=== PATIENT | female | born 1965 | race Caucasian/White ===

== ENCOUNTER → 2017-02-19 | Outpatient (CLI) | payer BC ==
[~2017-02-19] MED LIST: 00186-0370-20 IH; ALEVE 220MG220 MG PO; FLEXERIL 1010 MG/TAB PO; LORATADINE10 MG PO; NORCO 325 MG-51 TAB PO; NORCO 325 MG-7.1 TAB PO; PROAIR HFA0.09 MG/AC IH; SINGULAIR 110 MG/TAB PO; SUDAFED30 MG
== END ==
LOC: MC.RAD 08:19
DX: Z12.31 Encounter for screening mammogram for malignant neoplasm of breast (principal)

== ENCOUNTER → 2018-05-11 | Outpatient (CLI) | payer BC | LOC: MC.RAD 06:56 | DX: Z12.31 Encounter for screening mammogram for malignant neoplasm of breast (principal); Z98.890 Other specified postprocedural states ==

== ENCOUNTER → 2019-06-16 | Outpatient (CLI) | payer BC | LOC: MC.RAD 11:21 | DX: Z12.31 Encounter for screening mammogram for malignant neoplasm of breast (principal) ==

== ENCOUNTER → 2020-06-20 | Outpatient (CLI) | payer BC | LOC: MC.RAD 11:01 | DX: Z12.31 Encounter for screening mammogram for malignant neoplasm of breast (principal); Z98.890 Other specified postprocedural states; Z92.3 Personal history of irradiation ==

== ENCOUNTER → 2021-08-30 | Outpatient (CLI) | payer BC | LOC: MC.RAD 07:44 | DX: Z12.31 Encounter for screening mammogram for malignant neoplasm of breast (principal) ==

== ENCOUNTER → 2022-11-19 | Outpatient (CLI) | payer BC | LOC: MC.RAD 07:30 | DX: Z12.31 Encounter for screening mammogram for malignant neoplasm of breast (principal) ==